=== PATIENT | male | born 1965 | race African-American/Black ===

== ENCOUNTER 2018-06-15 10:17 | Emergency (ER) | payer BC ==
[~2018-06-15] VITALS: Ht 172.7 cm; Wt 93.0 kg
[2018-06-15 11:26] LABS: HEMATOCRIT 45.1 % (39.0-50.0); HEMOGLOBIN 15.3 g/dl (14.0-18.0); IMMATURE GRANULOCYTES 0.5 % (0.0-5.0); MEAN CELL VOLUME 86.7 fL CALC (80.0-100.0); MEAN CORPUSCULAR HGB 29.4 pG CALC (26.0-32.0); MEAN CORPUSCULAR HGB CONC 33.9 g/L CALC (32.0-36.0); NEUT# 3.06 thou/uL (1.82-7.42); RED BLOOD COUNT 5.2 mill/uL (4.70-6.10); RED CELL DISTRI WIDTH 13.2 % (11.5-15.5)
[2018-06-15 11:29] LABS: INTERNATIONAL NORMALIZED RATIO 0.9 RATIO (0.7-1.3); PROTHROMBIN TIME 10.3 SECONDS (9.0-12.5)
[2018-06-15] MEDS ORDERED: ANUCORT-HC25 MG RE (12:17)
[2018-06-15] MEDS ORDERED: PROCTO-MED HC2.5 % TOP (12:17)
[2018-06-15 12:31] VITALS: BP 125/84
== END 2018-06-15 12:40 | disposition home or self-care (01) | DRG 395 ==
LOC: ED 10:17
PROVIDERS: Emergency Medicine
DX: K64.9 Unspecified hemorrhoids (principal)